=== PATIENT | female | born 1975 | race Caucasian/White ===

== ENCOUNTER 2021-06-24 16:03 | Emergency (ER) | payer OTHER ==
[~2021-06-24] VITALS: Ht 167.6 cm; Wt 100.0 kg
[2021-06-24 16:16] VITALS: BP 173/99
[2021-06-24 16:31] VITALS: BP 175/94
[2021-06-24 16:46] VITALS: BP 156/86
[2021-06-24 17:16] VITALS: BP 154/90
[2021-06-24] MEDS ORDERED: IBUPROFEN600 MG PO (18:08)
== END 2021-06-24 18:13 | disposition home or self-care (01) | DRG 563 ==
LOC: ED 16:03
DX: S43.401A Unspecified sprain of right shoulder joint, initial encounter (principal); S53.401A Unspecified sprain of right elbow, initial encounter; S80.01XA Contusion of right knee, initial encounter; S50.311A Abrasion of right elbow, initial encounter; S80.211A Abrasion, right knee, initial encounter; I10 Essential (primary) hypertension; M06.9 Rheumatoid arthritis, unspecified; M79.7 Fibromyalgia; V49.50XA Passenger injured in collision with unspecified motor vehicles in traffic accident, initial encounter